=== PATIENT | male | born 1935 | race Caucasian/White ===

== ENCOUNTER → 2018-12-02 | Outpatient (CLI) | payer MEDICARE, OTHER ==
--- NOTE | 2018-12-02 16:07 | Diagnostic Imaging Report ---
CT of the chest, without contrast, 12/02/2018. History: COPD, shortness of breath. Comparison: None available. Technique: Multidetector CT scanning of the chest was performed from the level of the apices to the upper abdomen without contrast. Coronal and sagittal multiplanar reformations were obtained. RADIATION DOSE: Total DLP: 469 mGy*cm Dose modulation, iterative reconstruction, and/or weight based adjustment of the mA/kV was utilized to reduce the radiation dose to as low as reasonably achievable. Discussion: Evaluation is limited without IV contrast. Chest: The heart is mildly enlarged. There is calcification of the coronary arteries. The main pulmonary artery is dilated measuring 3.1 cm in diameter. The thoracic aorta is within normal limits for size. The thyroid is unremarkable. There is mediastinal or axillary adenopathy. Calcified right hilar node is present. Calcified granuloma is present in the right lower lobe. Diffuse bilateral irregular interlobular septal thickening is present with bilateral cylindrical bronchiectasis and scattered areas of honeycombing. There is no consolidation, mass, or pleural effusion. Limited evaluation of the upper abdomen shows normal adrenal glands. Bones and soft tissues: No acute abnormality. IMPRESSION: 1. Cardiomegaly and mild pulmonary artery enlargement without evidence of ferny pulmonary edema. 2. Pulmonary fibrosis. No focal consolidation or effusion. Signed by: Collin Guevara on 12/02/2018 4:03 PM
== END ==
LOC: CT 14:44
PROVIDERS: ATTEND Internal Medicine Critical Care Medicine
DX: R06.02 Shortness of breath (principal); J61 Pneumoconiosis due to asbestos and other mineral fibers; J44.9 Chronic obstructive pulmonary disease, unspecified; G83.10 Monoplegia of lower limb affecting unspecified side; M46.46 Discitis, unspecified, lumbar region; Z79.52 Long term (current) use of systemic steroids; M81.0 Age-related osteoporosis without current pathological fracture; Z87.891 Personal history of nicotine dependence
CPT/HCPCS: 71250